=== PATIENT | female | born 1935 | race Caucasian/White ===

== ENCOUNTER 2018-12-27 13:25 | Emergency (ER) | payer MEDICARE, BC ==
--- NOTE | 2018-12-27 14:36 | ED ---
Neurological HPI - HPI Summary HPI Summary: Pt is an 83 y/o female who presents to the ED c/o facial pain. Verbal history is provided by friend, patient is able to nod yes and no to questions. She is mute secondary to pain. Pt has had trigeminal neuralgia for over 5 years. This past weekend the pain has worsened. Pain is made worse with talking, eating, and bending over. Pt denies any numbness, paresthesia, fever, PITTMAN, CP, SOB, or N/ V. She also notes redness on her left cheek which is due to her steroid injections she gets from Dr. Guo. Her most recent steroid dose was not as strong. Pt seems Dr. Miller for the neuralgia. - History of Current Complaint Chief Complaint: EDNeurologicalDeficit Stated Complaint: TRIGEMINAL NEURALGIA PER PT FRIEND Time Seen by Provider: 12/27/18 14:30 Hx Obtained From: Patient, Family/Meter Supervisor - friend Onset/Duration: Gradual Onset, Started days ago - 2-3, Worse Since Timing: Constant Neurological Deficit Location: Facial Pain Intensity: 0 Associated Signs and Symptoms: Positive: Nothing - facial pain. Negative: Headache, Numbness, Nausea/Vomiting, Fever, Chest Pain, Shortness of Breath - Allergy/Home Medications Allergies/Adverse Reactions: Allergies Allergy/AdvReac Type Severity Reaction Status Date / Time celecoxib [From Celebrex] Allergy See Comment Verified 12/27/18 13:48 ciprofloxacin Allergy Unknown Verified 12/27/18 13:48 Reaction Details Influenza Virus Vaccines Allergy Unknown Verified 12/27/18 13:48 Reaction Details lamotrigine Allergy Unknown Verified 12/27/18 13:48 Reaction Details nitrofurantoin Allergy Unknown Verified 12/27/18 13:48 [From Macrobid] Reaction Details oxcarbazepine Allergy See Comment Verified 12/27/18 13:48 oxycodone Allergy See Comment Verified 12/27/18 13:48 Penicillins Allergy Rash Verified 12/27/18 13:48 phenytoin [From Dilantin] Allergy Unknown Verified 12/27/18 13:48 Reaction Details prednisone Allergy Flushing Verified 12/27/18 13:48 vaccine adjuvant system, Allergy Unknown Verified 12/27/18 13:48 AS01B liposomal Reaction [From Shingrix (PF)] Details varicella-zoster virus Allergy Unknown Verified 12/27/18 13:48 glycoprotein E, recombinant Reaction [From Shingrix (PF)] Details PMH/Surg Hx/FS Hx/Imm Hx Endocrine/Hematology History: Denies: Hx Diabetes Cardiovascular History: Denies: Hx Coronary Artery Disease Neurological History: Reports: Other Neuro Impairments/Disorders - trigeminal neuralgia Infectious Disease History: Unable to Obtain/Confirm Infectious Disease History: Denies: Traveled Outside the [place] in Last 30 Days - Family History Known Family History: Negative: Diabetes - Social History Alcohol Use: None Hx Substance Use: No Substance Use Type: Reports: None Hx Tobacco Use: No Smoking Status (MU): Never Smoked Tobacco Review of Systems Negative: Fever Negative: Chest Pain Negative: Shortness Of Breath Negative: Vomiting, Nausea Positive: Other - facial pain Neurological: Other - difficulty speaking due to pain Negative: Paresthesia, Numbness All Other Systems Reviewed And Are Negative: Yes Physical Exam - Summary Physical Exam Summary: Appearance: well appearing, no pain distress Skin: warm, dry, reflects adequate perfusion, flushing on left zygoma Head/face: normal Eyes: EOMI, IDALMIS ENT: mucous membranes moist Neck: supple, non-tender Respiratory: CTA, breath sounds present Cardiovascular: RRR, pulses symmetrical Abdomen: non-tender, soft Bowel Sounds: present Musculoskeletal: normal, strength/ROM intact Neuro: sensory motor intact, A&Ox3, mute secondary to pain Triage Information Reviewed: Yes Vital Signs On Initial Exam: Initial Vitals Temp Pulse Resp BP Pulse Ox 97.6 F 80 15 194/87 97 12/27/18 13:37 12/27/18 13:37 12/27/18 13:37 12/27/18 13:37 12/27/18 13:37 Vital Signs Reviewed: Yes Procedures - Procedure Summary Procedure Summary: Cervical block done for pain: Patient was placed sitting upright and her posterior cervical neck was cleaned with chlorhexidine. She was injected 1 cm lateral to C5 bilaterally with 1.5 cc of 0.5% bupivacaine with epinephrine in each side for a total of 3 cc. This injection greatly improved her pain and allowed her to both speak and take her medications/drink normally. She tolerated this well without complication. Diagnostics - Vital Signs Vital Signs Temp Pulse Resp BP Pulse Ox 12/27/18 13:37 97.6 F 80 15 194/87 97 - Laboratory Lab Statement: Any lab studies that have been ordered have been reviewed, and results considered in the medical decision making process. Re-Evaluation - Re-Evaluation First Eval Re-Evaluation Time: 15:20 Change: Improved Comment: Pt is now able to speak, drink water, and take her pills. Course/Dx - Course Course Of Treatment: Nurse's notes reviewed. The patient has chronic trigeminal neuralgia on her left side. She was unable to speak or even open her mouth much. She received a cervical nerve block which greatly reduced her discomfort and returned some range of motion. She was able to eat/drink and take oral medications. She was discharged to follow up with her neurologist. - Diagnoses Provider Diagnoses: Trigeminal neuralgia Discharge - Sign-Out/Discharge Documenting (check all that apply): Patient Departure - Discharge Patient Received Moderate/Deep Sedation with Procedure: No - Discharge Plan Condition: Improved Disposition: HOME Patient Education Materials: Trigeminal Neuralgia (ED) Referrals: Gilbert Miller MD [Medical Doctor] - Fadi GONZALEZ,Juana Mcclain [Primary Care Provider] - Additional Instructions: Return if worse, new symptoms or other concerns as discussed. Follow up with your neurologist. - Billing Disposition and Condition Condition: IMPROVED Disposition: Home - Attestation Statements Document Initiated by Scribe: Yes Documenting Scribe: Allegra Huertas Provider For Whom Scribe is Documenting (Include Credential): Anatoly Casas MD Scribe Attestation: Allegra Mccarty, [email or web address] for Anatoly Casas MD on 12/27/18 at 1757. Scribe Documentation Reviewed: Yes Provider Attestation: The documentation as recorded by the Allegra anthony accurately reflects the service I personally performed and the decisions made by , Anatoly Casas MD Status of Scribe Document: Viewed
[2018-12-27] MEDS ORDERED: Bupivacaine 0.5% W/EPI SDV* 30 ML VIAL INJ ONE (14:38)
[2018-12-27] MEDS ORDERED: Ketorolac INJ* 60 MG/2 ML VIAL IM ONE (15:10)
[2018-12-27 15:31] VITALS: BP 182/85
== END 2018-12-27 15:30 | disposition home or self-care (01) ==
LOC: ED 13:25
DX: G50.0 Trigeminal neuralgia (principal); R51 Headache; Z88.0 Allergy status to penicillin
CPT/HCPCS: 96372; 96374; 99282; J1885

== ENCOUNTER → 2019-03-31 10:20 | Emergency (ER) | payer MEDICARE, BC ==
[~2019-03-31 10:20] MED LIST: Lidocaine PATCH 5%* 1 PATCH TRANSDERM SCH; Lidocaine Patch REMOVE* 1 NOTE MISC SCH
--- NOTE | 2019-03-31 11:47 | ED ---
Neck Pain - HPI Summary HPI Summary: 83 year old female presents with neck pain for the past couple months. She states this located mostly on the right side of her neck. States it feels like her bones are rubbing on each other. States it is worse when she turns her neck. No numbness or tingling. No weakness. No headache. No change in vision. No chest pain or shortness of breath. She denies any new injury. no other compliant. states pain is intermittent and is worst when moves head. has history of trigeminal neuralgia and is on vimpat. - History of Current Complaint Chief Complaint: EDNeckComplaint Stated Complaint: NECK PAIN PER PATIENT Time Seen by Provider: 03/31/19 11:06 Pain Intensity: 4 - Allergies/Home Medications Allergies/Adverse Reactions: Allergies Allergy/AdvReac Type Severity Reaction Status Date / Time celecoxib [From Celebrex] Allergy See Comment Verified 12/27/18 13:48 ciprofloxacin Allergy Unknown Verified 12/27/18 13:48 Reaction Details Influenza Virus Vaccines Allergy Unknown Verified 12/27/18 13:48 Reaction Details lamotrigine Allergy Unknown Verified 12/27/18 13:48 Reaction Details nitrofurantoin Allergy Unknown Verified 12/27/18 13:48 [From Macrobid] Reaction Details oxcarbazepine Allergy See Comment Verified 12/27/18 13:48 oxycodone Allergy See Comment Verified 12/27/18 13:48 Penicillins Allergy Rash Verified 12/27/18 13:48 phenytoin [From Dilantin] Allergy Unknown Verified 12/27/18 13:48 Reaction Details prednisone Allergy Flushing Verified 12/27/18 13:48 vaccine adjuvant system, Allergy Unknown Verified 12/27/18 13:48 AS01B liposomal Reaction [From Shingrix (PF)] Details varicella-zoster virus Allergy Unknown Verified 12/27/18 13:48 glycoprotein E, recombinant Reaction [From Shingrix (PF)] Details Home Medications: Home Medications ALPRAZolam [Alprazolam] 1 tab PO DAILY PRN 03/31/19 [History Confirmed 03/31/19] Amitriptyline TAB* [Elavil TAB*] 12.5 mg PO BEDTIME 03/31/19 [History Confirmed 03/31/19] Atenolol 25 mg PO DAILY 03/31/19 [History Confirmed 03/31/19] Gabapentin 900 mg PO TID 03/31/19 [History Confirmed 03/31/19] Lacosamide [Vimpat] 50 mg PO BID 03/31/19 [History Confirmed 03/31/19] Multivitamin,Ther and Minerals [Multivitamins with Minerals Hp] 1 each PO DAILY 03/31/19 [History Confirmed 03/31/19] Omeprazole 20 mg PO DAILY 03/31/19 [History Confirmed 03/31/19] PMH/Surg Hx/FS Hx/Imm Hx Endocrine/Hematology History: Denies: Hx Diabetes Cardiovascular History: Denies: Hx Coronary Artery Disease Neurological History: Reports: Other Neuro Impairments/Disorders - trigeminal neuralgia Infectious Disease History: No Infectious Disease History: Denies: Traveled Outside the [place] in Last 30 Days - Family History Known Family History: Negative: Diabetes - Social History Alcohol Use: None Hx Substance Use: No Substance Use Type: Reports: None Hx Tobacco Use: No Smoking Status (MU): Never Smoked Tobacco Review of Systems Negative: Fever Negative: Chest Pain Negative: Shortness Of Breath Positive: Myalgia - neck pain All Other Systems Reviewed And Are Negative: Yes Physical Exam Triage Information Reviewed: Yes Vital Signs On Initial Exam: Initial Vitals Temp Pulse Resp BP Pulse Ox 99.0 F 76 16 159/87 98 03/31/19 10:27 03/31/19 10:27 03/31/19 10:27 03/31/19 10:27 03/31/19 10:27 Vital Signs Reviewed: Yes Appearance: Positive: Well-Appearing Skin: Positive: Warm, Dry Head/Face: Positive: Normal Head/Face Inspection Eyes: Positive: Normal, Conjunctiva Clear ENT: Positive: Pharynx normal Neck: Positive: Other: - tenderness midline neck, full ROM Respiratory/Lung Sounds: Positive: Clear to Auscultation, Breath Sounds Present Cardiovascular: Positive: Normal, RRR Musculoskeletal: Positive: Strength/ROM Intact - arms, Other - good pulses Neurological: Positive: Sensory/Motor Intact, Alert, Oriented to Person Place, Time, CN Intact II-III, Reflexes Intact - biceps Psychiatric: Positive: Normal Diagnostics - Vital Signs Vital Signs Temp Pulse Resp BP Pulse Ox 03/31/19 10:27 99.0 F 76 16 159/87 98 - Laboratory Lab Statement: Any lab studies that have been ordered have been reviewed, and results considered in the medical decision making process. - CT neck CT Interpretation Completed By: Radiologist Summary of CT Findings: IMPRESSION: 1. Varying degrees of multilevel spondylosis results in at least moderate spinal canal. stenosis at C5-C6 and C6 -C7 (MRI could better characterize the thecal sac). Mild to. moderate multilevel neural foraminal stenosis as above. 2. Osteopenia. Re-Evaluation - Re-Evaluation First Eval Re-Evaluation Time: 12:43 Change: Improved Comment: feeling better with lidocaine patch Neck Course/Dx - Course Course Of Treatment: 83 year old female presents with neck pain for the past couple months. She states this located mostly on the right side of her neck. States it feels like her bones are rubbing on each other. States it is worse when she turns her neck. No numbness or tingling. No weakness. No headache. No change in vision. No chest pain or shortness of breath. She denies any new injury. no other compliant. states pain is intermittent and is worst when moves head. has history of trigeminal neuralgia and is on vimpat. on exam tenderness midline neck. no neuro deficit. good arm strength. CT shows spinal canal stenosis. gave lidoderm patch and some pain relief. will prescribe such. told follow up with primary. patient understand and agrees with plan. - Diagnoses Differential Dx/HQI/PQRI: Positive: Arthritis, Sprain, Strain Provider Diagnoses: Neck pain Discharge - Sign-Out/Discharge Documenting (check all that apply): Patient Departure Patient Received Moderate/Deep Sedation with Procedure: No - Discharge Plan Condition: Good Disposition: HOME Prescriptions: Lidocaine PATCH 5%* [Lidoderm 5% Patch*] 1 patch TRANSDERM DAILY #7 patch Patient Education Materials: Neck Pain (ED) Referrals: Fadi GONZALEZ,Juana Mcclain [Primary Care Provider] - Additional Instructions: Apply lidocaine patches to area for up to 12 hours in one 24 hour period Use Tylenol for pain every 6 hours ice/heat area, move as much as possible Follow up with primary within 5 days Return to ED if develop any new or worsening symptoms - Billing Disposition and Condition Condition: GOOD Disposition: Home
[2019-03-31 13:12] VITALS: BP 153/96
== END | disposition home or self-care (01) ==
LOC: ED 10:20
DX: M54.2 Cervicalgia (principal); G50.0 Trigeminal neuralgia; Z88.1 Allergy status to other antibiotic agents; Z88.5 Allergy status to narcotic agent; Z88.0 Allergy status to penicillin; Z88.7 Allergy status to serum and vaccine; Z88.8 Allergy status to other drugs, medicaments and biological substances; Z79.899 Other long term (current) drug therapy; M48.02 Spinal stenosis, cervical region; M85.88 Other specified disorders of bone density and structure, other site
CPT/HCPCS: 72125; 99283; A9270-GY